=== PATIENT | female | born 1980 | race Caucasian/White ===

== ENCOUNTER 2022-07-28 23:40 | Emergency (ER) | payer BC, OTHER ==
[2022-07-29] MEDS ORDERED: Lidocaine 2% Viscous Solution 15 ML UD ONE (00:04)
[2022-07-29] MEDS ORDERED: HYDROmorphone 1 MG/ML Syringe IVPUSH STA (00:08)
[2022-07-29] MEDS ORDERED: Ondansetron 4 MG/2 ML SDV IVPUSH ONE (00:08)
[2022-07-29] MEDS ORDERED: Sodium Chloride 0.9% 1,000 ML IV SCH (00:15)
[2022-07-29] MEDS ORDERED: Lidocaine 2% Viscous Solution 15 ML UD PO ONE (00:20)
[2022-07-29] MEDS ORDERED: Aluminum Hydroxide/Magnesium Hydroxide/Simethicone Susp 30 ML Cup PO ONE (00:20)
[2022-07-29] MEDS ORDERED: Iopamidol 612 MG/ML 100 ML Bottle IVPUSH ONE (00:26)
[2022-07-29 00:28] LABS: ESTIMATED GFR 58 mL/min (>60)
[2022-07-29] MEDS ORDERED: Famotidine 20 MG Tab PO STA (01:53)
== END 2022-07-29 02:21 | disposition home or self-care (01) ==
LOC: JD.ED 23:40
DX: K21.9 Gastro-esophageal reflux disease without esophagitis (principal); E66.9 Obesity, unspecified; Z87.891 Personal history of nicotine dependence
CPT/HCPCS: 36415; 74177; 76705; 80053; 83690; 85025; 96361; 96374; 96375; 99284; A9270; J1170; J2405; J7030; Q9967

== ENCOUNTER 2022-07-29 09:24 | Emergency (ER) | payer BC ==
[2022-07-29] MEDS ORDERED: Metoclopramide 10 MG/2 ML SDV IVPUSH ONE (10:47)
[2022-07-29] MEDS ORDERED: HYDROmorphone 0.5 MG/0.5 ML Syringe IVPUSH ONE (10:52)
[2022-07-29] MEDS ORDERED: Alum Hydrox/Mag Hydrox/Simeth 30 ML, Lidocaine 2% 15 ML PO ONE ×2 (10:52)
[2022-07-29] MEDS ORDERED: Dicyclomine 10 MG Cap PO ONE (10:53)
[2022-07-29] MEDS ORDERED: Sucralfate 1 GM Tab PO ONE (11:40)
[2022-07-29] MEDS ORDERED: Famotidine 20 MG/2 ML SDV IVPUSH ONE (11:40)
[2022-07-29 11:56] LABS: ESTIMATED GFR 82 mL/min (>60)
[2022-07-29] MEDS ORDERED: Sodium Chloride 0.9% 1,000 ML IV STA (13:05)
== END 2022-07-29 16:54 | disposition home or self-care (01) ==
LOC: JD.ED 09:24
DX: R10.11 Right upper quadrant pain (principal); R10.13 Epigastric pain; R79.89 Other specified abnormal findings of blood chemistry; E66.9 Obesity, unspecified; Z68.33 Body mass index [BMI] 33.0-33.9, adult
CPT/HCPCS: 36415; 74177; 74181; 76705; 80053; 82977; 83690; 85025; 86140; 96361; 96374; 96375; 99284; A9270; J1170; J2405; J2765; J3490; J7030; Q9967; 99283

== ENCOUNTER 2022-08-06 21:17 | Emergency (ER) | payer BC ==
[2022-08-06] MEDS ORDERED: Ondansetron 4 MG/2 ML SDV IVPUSH ONE (22:44)
[2022-08-06] MEDS ORDERED: HYDROmorphone 1 MG/ML Syringe IVPUSH ONE (22:44)
[2022-08-06] MEDS ORDERED: Sodium Chloride 0.9% 1,000 ML IV SCH (22:45)
== END 2022-08-07 00:46 | disposition home or self-care (01) ==
LOC: JD.ED 21:17
DX: K80.50 Calculus of bile duct without cholangitis or cholecystitis without obstruction (principal); E66.9 Obesity, unspecified; Z68.33 Body mass index [BMI] 33.0-33.9, adult; Z87.891 Personal history of nicotine dependence
CPT/HCPCS: 36415; 80053; 83690; 85007; 85027; 96361; 96374; 96375; 99284; J1170; J2405; J7030